=== PATIENT | female | born 1990 | race Caucasian/White ===

== ENCOUNTER 2019-10-09 21:10 | Emergency (ER) | payer OTHER, SELFPAY ==
--- NOTE | ~2019-10-09 | XR_ITS ---
EXAMINATION: XR chest 1V portable INDICATION: Shortness of breath TECHNIQUE: Portable AP chest at 2206 hours COMPARISON: None available FINDINGS: The lungs are free of acute opacities. There is no pleural effusion or pneumothorax. The ca rdiomediastinal silhouette is normal. IMPRESSION: 1. No acute cardiopulmonary abnormality. Reviewed, dictated and finalized at location A.
[2019-10-09 21:15] VITALS: BP 131/91; PULSE 117; RESP 16; TEMP 37.1; O2SAT 96
[2019-10-09 21:25] VITALS: BP 131/91; PULSE 107; RESP 14; O2SAT 98
--- NOTE | 2019-10-09 21:35 | ECG_ITS ---
Measurements Intervals [place] Rate: 99 P: 64 IN: 169 QRS: 61 QRSD: 94 T: 19 QT: 341 QTc: 439 Interpretive Statements SINUS RHYTHM WITH SINUS ARRHYTHMIA NONSPECIFIC ST & T-WAVE ABNORMALITY- ANT/INF LEADS BORDERLINE ECG Electronically Signed On 10-10-2019 6:54:22 CDT by Fitz Richmond D.O.
--- NOTE | 2019-10-09 21:36 | ED.GENADULT ---
HPI - General Adult General Chief complaint: Anxiety Stated complaint: SOB Time Seen by Provider: 10/09/19 21:17 Source: RN notes reviewed History of Present Illness HPI narrative: Patient presents emergency department from home for shortness of breath. Patient states symptoms have been present throughout the day today but worsened this evening. She states that this evening she became more short of breath and anxious. States symptoms again worse after she ate an edible gummy which she recently began taking for bilateral foot pain from cleft feet. She denies any fevers or chills cough chest pain abdominal pain nausea vomiting or any other symptoms Related Data Home Medications Medication Instructions Recorded Confirmed norethindrone-e.estradiol-iron [Lo 1 tablet PO DAILY 01/03/19 01/07/19 Loestrin Fe] gabapentin 300 mg PO HS 10/09/19 Allergies Allergy/AdvReac Type Severity Reaction Status Date / Time latex Allergy Intermediate SWELLING Verified 10/09/19 21:23 acetaminophen [From Percocet] AdvReac Agitated Verified 10/09/19 21:42 oxycodone [From Percocet] AdvReac Agitated Verified 10/09/19 21:42 Review of Systems Review of Systems: Narrative: Gen.: Denies fevers or chills Eyes: Denies eye pain or visual change ENT: Denies congestion Respiratory: Reports shortness of breath CV: Denies chest pain or palpitations GI: Denies abdominal pain nausea, emesis or diarrhea Musculoskeletal: Denies back pain or muscle pain Neuro: Denies numbness, tingling, weakness or focal weakness Skin: Denies rash Except as documented, all other systems reviewed and negative [facility] Past Medical History Medical History (Updated 10/09/19 @ 23:04 by Chalo Dunne DO) Cleft foot Social History Social History (Updated 10/09/19 @ 21:37 by Chalo Dunne DO) Smoking status: Never smoker Gender identity (if verbalized by the patient): Female Sexual Orientation (if Verbalized by the Patient): Straight or Heterosexual Exam Narrative: Exam Narrative: APPEARANCE: Anxious and tearful sitting in bed EYES: EOMI HEENT: Normocephalic, atraumatic, OMM RESPIRATORY: No respiratory distress Clear to auscultation bilaterally with no rhonchi wheezing or rales. CARDIOVASCULAR: Regular rate and rhythm without murmurs rubs or gallops. ABDOMINAL: Soft, nontender, nondistended, no rebound or guarding MUSCULOSKELETAl: Moves all extremities. No clubbing, cyanosis or edema. NEURO: Awake and alert. Following commands, speech normal, no focal deficits SKIN:: Warm, dry. No rashes lesions or abrasions PSYCHIATRIC: Anxious and tearful Course Course Emergency Course: Patient states symptoms have resolved following Ativan Discussed with patient results of workup and diagnosis. Discussed need for follow-up with primary care, proper use of medication, and reasons to return to the emergency department. Patient understands and agrees to current treatment plan Vital Signs Vital signs: Vital Signs Temperature 98.7 F 10/09/19 21:15 Pulse Rate 117 H 10/09/19 21:15 Respiratory Rate 16 10/09/19 21:15 Blood Pressure 131/91 H 10/09/19 21:15 Pulse Oximetry 96 10/09/19 21:15 Temperature 98.7 F 10/09/19 21:15 Pulse Rate 98 10/09/19 22:27 Respiratory Rate 18 10/09/19 22:27 Blood Pressure 109/75 10/09/19 22:27 Pulse Oximetry 97 10/09/19 22:27 Medical Decision Making MDM Narrative Medical decision making narrative: Patient has dyspnea of unclear etiology. No wheezing on clinical exam. Low risk well score, PE is felt unlikely. No abnormalities noted on chest x-ray. Patient?s EKG is without high-risk changes. Oxygen saturations are normal. Patient is felt to be a reasonable candidate for additional evaluation as an outpatient. Vital Signs Vital Signs: Vital Signs Temperature 98.7 F 10/09/19 21:15 Pulse Rate 117 H 10/09/19 21:15 Respiratory Rate 16 10/09/19 21:15 Blood Pressure 131/91 H 10/09/19 21:15 Pulse Oxim
--- NOTE | 2019-10-09 21:54 | PC.NURSE ---
pt ambulatory with steady gait to restroom to provide urine specimen at this time.
[2019-10-09 21:55] VITALS: BP 117/86; PULSE 106; RESP 15; O2SAT 98
[2019-10-09 21:55] LABS: Basophils Percent Auto 0.6 % (0.2-1.2); Eosinophils Absolute Auto 0.2 K/mm3 (0-0.3); Hematocrit 38.8 % (37.0-47.0); Hemoglobin 13.4 g/dL (12.0-15.0); Immature Granulocyte Absolute 0.01 K/mm3 (0.00-0.031); Immature Granulocyte Percent A 0.1 % (0-0.5); Lymphocytes Percent Auto 41.9 % (18.3-44.2); Mean Corpuscular HGB Conc 34.5 g/dl (32-36); Mean Corpuscular Hemoglobin 29.9 pg (26-34); Mean Corpuscular Volume 86.6 fl (80-100); Monocytes Absolute Auto 0.5 K/mm3 (0.1-0.6); Monocytes Percent Auto 7.3 % (2.6-8.5); Neutrophils Absolute Auto 3.2 K/mm3 (1.3-6.7); Neutrophils Percent Auto 47.1 % (45.5-73.1); Platelet Count Result 208 k/mm3 (150-375); Red Blood Count 4.48 M/mm3 (4.2-5.4); Red Cell Distribution Width 12.8 % (11.5-14.5); White Blood Count 6.7 K/mm3 (4.5-10.0)
--- NOTE | 2019-10-09 22:00 | PC.NURSE ---
pt unable to provide urine at this time.
--- NOTE | 2019-10-09 22:01 | PC.NURSE ---
portable xray at bedside.
[2019-10-09 22:07] LABS: Anion Gap 12.3 mmol/L (7-16); Blood Urea Nitrogen 10 mg/dL (7-17); Calcium 9.7 mg/dL (8.4-10.2); Carbon Dioxide 25 mmol/L (22-30); Chloride 104 mmol/L (98-107); Estimated CRCL calculation 108 ml/min; Estimated Glomerular Filt Rate > 60; Glucose 120 mg/dL (65-105); Potassium 3.3 mmol/L (3.4-5.0); Sodium 138 mmol/L (137-145)
[2019-10-09 22:08] LABS: INR 0.9; Partial Thromboplastin Time 24.6 SECONDS (22.3-36.8); Prothrombin Time 12.1 Seconds (11.1-14.7)
[2019-10-09 22:11] LABS: D Dimer 0.44 ug/mL (<0.48)
--- NOTE | 2019-10-09 22:15 | PC.NURSE ---
RN report given to Emma.
[2019-10-09 22:19] LABS: Troponin I < 0.012 ng/mL (0.000-0.034)
[2019-10-09] MEDS: SODIUM CHLORIDE 0.9% IV 1,000 ML 999 ML IV CONT (22:25)
[2019-10-09 22:27] VITALS: BP 109/75; PULSE 98; RESP 18; O2SAT 97
--- NOTE | 2019-10-09 22:28 | PC.NURSE ---
this rn explained to patient that we still need urine sample. bag of fluids started on pt. pt given urine cup.
--- NOTE | 2019-10-09 22:59 | PC.NURSE ---
pt states she isn't able to urinate at this time.
[2019-10-09 23:20] VITALS: BP 109/86; PULSE 83; RESP 16; O2SAT 99
--- NOTE | 2019-10-16 06:07 | PC.NURSE ---
LATE ENTRY pt ns stopped prior to d/c. This note is being entered to document information to the patient's record. The following information was omitted on [10/16/2019], by [kamilah perez].
== END 2019-10-09 23:22 | disposition home or self-care (01) ==
PROVIDERS: Emergency Provider Emergency Medicine; PCP Internal Medicine
DX: F41.9 Anxiety disorder, unspecified (principal); R94.31 Abnormal electrocardiogram [ECG] [EKG]
CPT/HCPCS: 36415; 71045; 80048; 84484; 85025; 85380; 85610; 85730; 93005; 96361; 96374; 99284; J2060; J7030

== ENCOUNTER 2022-03-17 08:41 | Outpatient (CLI) | payer OTHER, SELFPAY ==
[2022-03-17 09:44] LABS: Hematocrit 40.1 % (37.0-47.0); Hemoglobin 13.2 g/dL (12.0-15.0)
== END 2022-03-17 08:42 | disposition home or self-care (01) ==
PROVIDERS: PCP Internal Medicine; Visit Provider Obstetrics & Gynecology
DX: N93.9 Abnormal uterine and vaginal bleeding, unspecified (principal)
CPT/HCPCS: 36415; 85014; 85018

== ENCOUNTER 2022-03-21 00:28 | Day surgery (SDC) | payer OTHER, SELFPAY ==
[2022-03-14 12:25] VITALS: BMI 26.4
--- NOTE | 2022-03-14 12:33 | PC.NURSE ---
Report to the Outpatient Waiting Room, entrance under the green pavilion located off [facility], at time __0630 on date _03/21/22 . Planned Procedure Time: _. Time changes happen often and if your time is changed the preop area will call you the afternoon before. - You and your visitor will be asked to self-screen and do not enter if you have any COVID symptoms. - Only one visitor is requested with a max of two and NO children visitors are allowed at this time. - The patient visitor may be requested to leave or wait in car when not with patient due to distancing restrictions. - A mask is optional within the hospital. Patients may have clear liquids (water, carbonated beverages, clear teas, apple juice) until 3 hours prior to surgery with a maximum of 20 ounces. - No food from midnight until time of surgery - Infants may have breast milk until 4 hours before surgery, formula 6 hours prior to surgery. - Children will be allowed to drink immediately following surgery. If applicable, please bring a bottle or sippy cup to assist with drinking. Juice, water, soda, and popsicles are readily available. For infants on formula, please bring formula the day of surgery. Pacifiers are allowed. Take the following medications with a SIP of water the morning of surgery: ____NONE Medications to discontinue per physician IBUPROFEN Date to take last dose 03/16/22 Please no make-up, nail ethiopian, hairspray, perfume, deodorant, or body powder the day of surgery. No jewelry (including any body piercings) or valuables the day of surgery, leave them at home. Please take a shower or bath the night before, or the morning of, surgery with an antibacterial soap. Wear comfortable, loose fitting clothing. Children are encouraged to wear pajamas. - Jewelry must be removed prior to entering the operating room. Rings and piercings that are not removed may be cut off. - The hospital will not accept responsibility for valuables. - Please leave all valuables, including medications, at home the day of surgery. If you are going home after surgery, a licensed grain combine driver must drive you home. - NO public transportation without another adult if you receive anesthesia. - We recommend that an adult stay with you for 24 hours following discharge. - We also recommend that you do not drive, make important decision, drink alcoholic beverages, or take any drugs that were not prescribed by your health care provider for at least 24 hours after your discharge time. For Pediatric surgeries, we recommend two adults accompany the child home. Follow any additional instructions given to you from your surgeon. If you or anyone in your household have experienced Covid symptoms in the past week, please notify your surgeon or the nurse liaison at the phone number below for possible testing. Telephone instructions given to PATIENT__and asked if any additional questions and then verbalized understanding. Patient advised to call surgeon office or pre surgery nurse liaison [phone] if any additional questions.
--- NOTE | 2022-03-19 07:51 | PM.IMHP ---
H&P: HPI History of Present Illness Date/Time: 03/19/22 07:51 Chief Complaint: Desires permanent sterilization and heavy bleeding Narrative: Say 32-year-old multiparous admitted for laparoscopic tubal ligation hysteroscopy/dilatation curettage/Shahla ablation. She desires permanent irreversible sterilization. She also has excellent extremely heavy periods was made refractory to medical therapy risks and benefits and permanence were all reviewed. She had all questions answered. She asked to proceed PMFSH Past Medical History Medical History Cleft foot Social History Social History Smoking status: Never smoker Alcohol intake: current Alcohol use details: 2 PER MONTH Substance use: never Gender identity (if verbalized by the patient): Female Sexual Orientation (if Verbalized by the Patient): Straight or Heterosexual Meds Home Medications and Allergies Home Medications Medication Instructions Recorded Confirmed Type norethindrone 1 mg-ethinyl 1 tablet PO DAILY 01/03/19 03/14/22 History estradiol 10 mcg (24)-iron 10 mcg(2) tablet (Lo Loestrin Fe) ibuprofen 200 mg tablet 600 mg PO Q6H PRN Pain 03/14/22 03/14/22 History Allergies Allergy/AdvReac Type Severity Reaction Status Date / Time latex Allergy Intermediate SWELLING Verified 10/09/19 21:23 oxycodone [From Percocet] AdvReac Agitated Verified 10/09/19 21:42 Exam Const: General: cooperative, healthy appearing and comfortable Nutritional Appearance: average body habitus Orientation/consciousness: oriented to person, oriented to place and oriented to time HENMT: Head: normal to inspection Resp: Effort & Inspection: normal respiratory effort Cardio: Rate: regular rate Rhythm: regular rhythm Heart sounds: S1 normal heart sound present and S2 normal heart sound present GI: Inspection: normal to inspection : External Female Exam: normal external appearance Speculum Exam - Vagina: normal appearance of the vagina Speculum Exam - Cervix: normal appearance of the cervix Bimanual exam- vagina & uterus: enlarged Bimanual Exam- Adnexa, other: normal adnexae Assessment and Plan Assessment and plan (1) Sterilization: Code(s): Z30.2 - Encounter for sterilization Status: Acute (2) Excessive bleeding: Code(s): R58 - Hemorrhage, not elsewhere classified Status: Acute Plan Laparoscopic tubal ligation/hysteroscopy/dilatation curettage/Shahla ablation
[2022-03-21] VITALS (10 sets, daily range): BP systolic 111–126; BP diastolic 68–83; PULSE 64–98; RESP 12–20; TEMP 36.5–36.8; O2SAT 98–100
[2022-03-21] MEDS: ACETAMINOPHEN 500 MG TABLET 1000 MG PO (07:04)
--- NOTE | 2022-03-21 07:08 | WPDHPUPDATE1 ---
History and Physical Update Update Date/Time: 03/21/22 07:08 History and Physical has been reviewed, including an updated exam of the patient. There are NO changes in the patient's condition. Risks, benefits, and alternatives have been discussed and questions answered. Patient agrees to proceed with procedure.
[2022-03-21] MEDS: LACTATED RINGERS 1,000 ML 30 ML IV CONT ×2 (07:15→11:05)
[2022-03-21] MEDS: KETOROLAC 15 MG/ML VIAL (*BKC) IV PUSH (07:20)
--- NOTE | 2022-03-21 07:46 | P.PNAN_ITS ---
Anes - Initial Pre Proc Eval Procedure: Operation Date: 03/21/22 08:30 Proposed Procedures p Hysteroscopy Dilation and Curettage with Shahla Endometrial Ablation - Casey Fonseca MD s Laparoscopic Bilateral Tubal Ligation with Fallopian Rings - Casey Fonseca MD Date/Time: 03/21/22 07:46 Surgeon: Casey Fonseca MD Pre Op Diagnosis: irregular bleeding , desires sterilization Patient Data Age: 32 Gender: F Height: 1.65 m Weight: 78.9 kg Last Vital Signs Temp 36.8 C 03/21/22 06:31 Pulse 98 03/21/22 06:31 Resp 20 03/21/22 06:31 BP 121/79 03/21/22 06:31 Pulse Ox 98 03/21/22 06:31 O2 Del Method Room Air 03/21/22 06:31 Allergies Allergy/AdvReac Type Severity Reaction Status Date / Time latex Allergy Intermediate SWELLING/RA Verified 03/21/22 07:02 SH/ITCING oxycodone [From Percocet] AdvReac Agitated/Anger Verified 03/21/22 07:02 as a kid Home Medications Medication Instructions Recorded Confirmed Type norethindrone 1 mg-ethinyl 1 tablet PO DAILY 01/03/19 03/21/22 History estradiol 10 mcg (24)-iron 10 mcg(2) tablet (Lo Loestrin Fe) ibuprofen 200 mg tablet 600 mg PO Q6H PRN Pain 03/14/22 03/21/22 History hydrocodone 5 mg-acetaminophen 325 1 tablet PO Q4H PRN pain #20 tabs 03/21/22 Rx mg tablet Patient hx anesthesia problems: none Family hx anesthesia problems: none Results Review: All pre-operative results and documents have been reviewed as part of the pre- operative evaluation. [facility] Surgical History Surgical History H/O foot surgery Social History Social History Smoking status: Never smoker Alcohol intake: current Alcohol use details: 2 PER MONTH Substance use: never Living arrangements: with family Gender identity (if verbalized by the patient): Female Sexual Orientation (if Verbalized by the Patient): Straight or Heterosexual Anes - Eval Final PreProcedure Day of Procedure 03/21/22 07:46 Patient weight: overweight Heart: regular rate and rhythm Lungs: clear to auscultation Airway: Mallampati scale class II Neurological: alert and oriented Last oral intake: >/= 8 hours ASA classification: II Emergent: no Anesthetic plan: proceed Anesthesia type and monitoring: general ETT and standard monitoring Results Review: All pre-operative results and documents have been reviewed as part of the pre- operative evaluation. Informed Consent: The patient's anesthetic plan and its attendant risks and benefits were discussed with the patient/family/POA. Questions were solicited and answers provided to the satisfaction of the patient/family/POA.
--- NOTE | 2022-03-21 09:53 | WPDHPUPDATE1 ---
History and Physical Update Update Date/Time: 03/21/22 09:53 History and Physical has been reviewed, including an updated exam of the patient. There are NO changes in the patient's condition. Risks, benefits, and alternatives have been discussed and questions answered. Patient agrees to proceed with procedure. the Falope rings were unavailable today so the patient will undergo tubal ligation with Kleppinger bipolar cautery
--- NOTE | 2022-03-21 10:14 | SUR.PREOP ---
0900-PT AND AWARE SURGEON DELAYS SELF UNDETERMINED AMOUNT OF TIME.
--- NOTE | 2022-03-21 11:00 | P.OP_ITS ---
Procedure Note - Detailed Date of Procedure 03/21/22 Pre-op Diagnosis irregular bleeding , desires sterilization Post-op Diagnosis Same Procedure Performed Laparoscopic bilateral tubal ligation with bilateral cautery /hysteroscopy/ dilatation curettage/Shahla ablation Surgeon Casey Fonseca MD Anesthesia General Indications this is a 32-year-old multiparous who desires permanent sterilization with excessive heavy bleeding. Findings Normal-appearing uterus ovaries and tubes. Hysteroscopy the uterus 7 and cm. Endometrial lining within normal limits Description of Procedure patient was prepped draped in normal sterile fashion placed in dorsal lithotomy position. Under excellent general trach anesthesia weighted speculum placed in posterior fornix vagina. Anterior lip of the cervix grasped with a single-tooth tenaculum. Blank's cannula was inserted to the cervix attached with single- tooth to be used later for uterine manipulation. The bladder was emptied of clear urine in the weighted speculum was removed. The gloves were changed. An infraumbilical incision made the Veress needle passed in the abdomen. Abdomen filled with CO2 gas [id number]. The 5mm trocar advanced under direct vi sualization assuring no injury. The patient placed in Trendelenburg and a suprapubic incision made the 5mm trocar advanced under direct visualization assuring no injury. The ovaries tubes and uterus appeared within normal limits. The right fallopian tube was grasped and burned consecutively in 3 redd with the Kleppinger your. This was repeated on the contralateral side to the left fallopian tube and photo documentation undertaken. No other abnormalities were seen. The lower site removed. The gas removed from the abdomen. The upper site removed and the incisions closed with 4 Monocryl and glue. Attention was then turned to the hysteroscopic portion the procedure. The Blank's cannula was removed. The uterus sounded to7.5cm. Serial dilatation with fragmented dilators performed followed by passes the 5mm visualizing hysteroscope using normal saline as visualizing medium. Each fallopian tube os could be seen and no definitive abnormalities were seen. The uterus was then scraped over the entire 360? until a good grating sound was heard. When no further tissue could be removed the instruments were withdrawn and the Shahla instrument was placed at the appropriate settings and burned for 120seconds. This was removed. The hysteroscope was then reinserted with an excellent burn noted. The instruments removed and all were accounted for. She tolerated the procedure well, all sponge, needle, instrument counts were correct. There were no immediately complications Estimated Blood Loss 5 Drains No Packing No Pathology Yes Complications No immediate complications Condition Stable Disposition PACU
[2022-03-21] MEDS: fentaNYL CITRATE INJ (*CRX) 100 MCG/2 ML VIAL 25 MCG IV PUSH ×5 (11:18→12:08)
[2022-03-21] MEDS: HYDROmorphone HCL INJ (*CRX) 1 MG/ML SYR 0.5 MG IV PUSH (12:24)
[2022-03-21] MEDS: HYDROcodone/acetaminophen (*CRX) 5-325 MG TABLET 1 TAB PO (13:05)
== END 2022-03-21 14:12 | disposition home or self-care (01) ==
PROVIDERS: PCP Internal Medicine; Visit Provider Obstetrics & Gynecology
PROC: 0U5B8ZZ Destruction of Endometrium, Via Natural or Artificial Opening Endoscopic (ICD-10-PCS; CPT 58563; principal; 2022-03-21 08:30)
PROC: (CPT 58671; 2022-03-21 08:30)
DX: N93.9 Abnormal uterine and vaginal bleeding, unspecified (principal); Z30.2 Encounter for sterilization
CPT/HCPCS: 58670; 58563; 88305; A9270; J1100; J1170; J1885; J2250; J2405; J2704; J2710; J3010; J7030; J7120